=== PATIENT | female | born 1985 | race Two or more races ===

== ENCOUNTER → 2025-07-21 | Outpatient (CLI) | payer MEDICAID, SELFPAY ==
--- NOTE | 2025-07-21 09:25 | XR_ITS ---
EXAMINATION: PA lateral chest 2 views TECHNIQUE: PA lateral chest 2 views Date and time: July 21, 2025, 10:00 a.m. INDICATIONS: Abnormal TB skin test this month. FINDINGS: Normal heart size Lungs are clear Osseous structures are intact IMPRESSION: No active disease No radiographic findings of active tuberculosis
== END | disposition home or self-care (01) ==
LOC: CDIM 09:12
PROVIDERS: PCP Nurse Practitioner Family; Referring Provider Nurse Practitioner Family; Visit Provider Nurse Practitioner Family
DX: R76.11 Nonspecific reaction to tuberculin skin test without active tuberculosis (principal)
CPT/HCPCS: 71046